=== PATIENT | female | born 1960 | race Caucasian/White ===

== ENCOUNTER 2019-08-22 14:40 | Outpatient (CLI) | payer OTHER ==
[2019-08-22] MEDS ORDERED: ROSU40TA PO (14:58)
[2019-08-22] MEDS ORDERED: AZEL137S4 NAS (14:58)
[2019-08-22] MEDS ORDERED: METH500T7 PO (14:58)
[2019-08-22] MEDS ORDERED: ESCI5TAB7 PO (14:58)
[2019-08-22] MEDS ORDERED: LEVO5TAB29 PO (14:58)
[2019-08-22] MEDS ORDERED: estradiol (14:58)
[2019-08-22] MEDS ORDERED: PROG100C16 PO (14:58)
[2019-08-22] MEDS ORDERED: GABA100C PO (14:58)
[2019-08-22] MEDS ORDERED: CALC1CAP8 PO (15:01)
[2019-08-22] MEDS ORDERED: SALM1CAP2 PO (15:01)
[2019-08-22] MEDS ORDERED: LACT1CAP35 PO (15:01)
[2019-08-22] MEDS ORDERED: ASCO500T8 PO (15:01)
[2019-08-22] MEDS ORDERED: MAGN400T9 PO (15:01)
[2019-08-22] MEDS ORDERED: CHOL10003 PO (15:01)
[2019-08-22] MEDS ORDERED: B CO1TAB14 PO (15:01)
== END 2019-08-22 23:59 | disposition home or self-care (01) ==
LOC: STAR 14:40
PROVIDERS: ATTEND Orthopaedic Surgery
DX: Z02.9 Encounter for administrative examinations, unspecified (principal)

== ENCOUNTER 2019-09-03 11:11 | Day surgery (SDC) | payer OTHER ==
[~2019-09-03] VITALS: Ht 162.6 cm; Wt 57.1 kg
[~2019-09-03 11:11] MED LIST: ASCO500T8 PO; AZEL137S4 NAS; B CO1TAB14 PO; BUPIVACAINE/PF 0.25% ONE; CALC1CAP8 PO; CHOL10003 PO; EPINEPHRINE 1 MG/ML, 1ML ONE; ESCI5TAB7 PO; FENTANYL PF 100 MCG/2ML ONE; GABA100C PO; LACT1CAP35 PO; LEVO5TAB29 PO; LIDOCAINE 1%-EPI 1:100K, 20ML ONE; MAGN400T9 PO; METH500T7 PO; MIDAZOLAM 1 MG/ML, 2ML ONE; PROG100C16 PO; ROPIvacaine/PF 0.5%, 30 ML ONE; ROSU40TA PO; SALM1CAP2 PO; estradiol
[2019-09-03 11:33] VITALS: BP 119/81
[2019-09-03] MEDS ORDERED: GABAPENTIN 300 MG CAPSULE PO STA (11:35)
[2019-09-03] MEDS ORDERED: ACETAMINOPHEN 500 MG TABLET PO STA (11:35)
[2019-09-03] MEDS ORDERED: LACTATED RINGERS 1,000 ML IV SCH (11:36)
[2019-09-03] MEDS ORDERED: EPHEDRINE 50 MG/ML, 1ML ONE (12:11)
[2019-09-03] MEDS ORDERED: SUCCINYLCHOLINE 20 MG/ML, 10ML ONE (12:11)
[2019-09-03] MEDS ORDERED: ROCURONIUM 10MG/ML,5ML ONE (12:11)
[2019-09-03] MEDS ORDERED: PHENYLEPHRINE 10 MG/ML ONE (12:11)
[2019-09-03] MEDS ORDERED: OXYcodone 5 MG/5 ML ORAL.SOL UDC PO PRN (13:00)
[2019-09-03] MEDS ORDERED: MIDAZOLAM 1 MG/ML, 2ML IV PRN (13:00)
[2019-09-03] MEDS ORDERED: ALBUTEROL/IPRATROPIUM 2.5MG/0.5MG, 3 ML NPPB PRN (13:00)
[2019-09-03] MEDS ORDERED: HYDROmorphone 2 MG/ML, 1ML IVPush PRN (13:00)
[2019-09-03] MEDS ORDERED: METOPROLOL 1 MG/ML, 5ML IV PRN (13:00)
[2019-09-03] MEDS ORDERED: PROMETHAZINE 25 MG/ML, 1ML IV PRN (13:00)
[2019-09-03] MEDS ORDERED: hydrALAzine 20 MG/ML, 1ML IV PRN (13:00)
[2019-09-03] MEDS ORDERED: FENTANYL PF 100 MCG/2ML IV PRN (13:00)
[2019-09-03] MEDS ORDERED: MEPERIDINE/PF 25MG/ML,1ML IVPush PRN (13:00)
[2019-09-03] MEDS ORDERED: BUPIVACAINE/PF 0.5% ONE (13:11)
[2019-09-03] MEDS ORDERED: ONDANSETRON 2MG/ML, 2ML ONE (13:12)
[2019-09-03] MEDS ORDERED: CEFAZOLIN 1,000 MG ONE (13:12)
[2019-09-03] MEDS ORDERED: PROPOFOL 10 MG/ML, 20ML ONE (13:12)
[2019-09-03] MEDS ORDERED: LIDOCAINE-MPF 2% ,5ML ONE (13:12)
[2019-09-03] MEDS ORDERED: DEXAMETHASONE 4 MG/ML, 1ML ONE (13:12)
== END 2019-09-03 16:05 | disposition home or self-care (01) ==
LOC: OUT 11:11
PROVIDERS: ATTEND Orthopaedic Surgery
DX: S46.011A Strain of muscle(s) and tendon(s) of the rotator cuff of right shoulder, initial encounter (principal); S43.431A Superior glenoid labrum lesion of right shoulder, initial encounter; M75.41 Impingement syndrome of right shoulder; M94.211 Chondromalacia, right shoulder; E78.5 Hyperlipidemia, unspecified; Z79.1 Long term (current) use of non-steroidal anti-inflammatories (NSAID); Z79.899 Other long term (current) drug therapy; Z88.5 Allergy status to narcotic agent; Z90.710 Acquired absence of both cervix and uterus; Z98.890 Other specified postprocedural states; Z82.61 Family history of arthritis; Z82.3 Family history of stroke; Z82.49 Family history of ischemic heart disease and other diseases of the circulatory system; X58.XXXA Exposure to other specified factors, initial encounter; Y93.89 Activity, other specified; Y92.89 Other specified places as the place of occurrence of the external cause; Y99.8 Other external cause status
CPT/HCPCS: 29823; 29826; 29827; 64415; C1713; J0171; J0330; J0690; J1100; J2250; J2370; J2405; J2704; J3010; J3490; J7120; Q4100; J2795